=== PATIENT | female | born 1975 | race Caucasian/White ===

== ENCOUNTER → 2017-04-08 | Outpatient (CLI) | payer BC ==
--- NOTE | 2017-04-11 10:59 | CR ---
EXAM DATE: 04/08/17 PATIENT'S AGE: 41 Patient: VIOLETA ALVAREZ Facility: [facility] Site . Site : [id number] Study: XRay-Knee Left [id number]/15/2017 5:33:00 PM Ordering Physician: Susie Vann Final Report: INDICATION: pain in left knee TECHNIQUE: Knee radiograph 4 views left COMPARISON: None FINDINGS: Bones: Alignment is normal. No acute fractures or aggressive bone lesions identified. Joint spaces: Unremarkable. No knee effusion is seen on the lateral exam. Soft tissues: Unremarkable. No radiopaque foreign bodies are seen. IMPRESSION: 1. No acute osseous injuries are noted. Dictated by: Frank Rodriguez MD @ 04/10/2017 23:52:46 Signed by: Frank Rodriguez MD @04/10/2017 11:52:46 PM (Electronic Signature) Report Signed by Proxy. FRANSISCA
== END ==
LOC: MW.CHPM 14:49
PROVIDERS: ATTEND Anesthesiology
DX: Z51.81 Encounter for therapeutic drug level monitoring (principal); M25.562 Pain in left knee; Z79.891 Long term (current) use of opiate analgesic
CPT/HCPCS: 73564-26-LT; 73564-LT; 80305

== ENCOUNTER 2017-06-04 07:42 | Emergency (ER) | payer BC ==
--- NOTE | 2017-06-04 08:06 | EDM.PDOC ---
ED HPI GENERAL MEDICAL PROBLEM - General Chief Complaint: Neurological Problem Stated Complaint: RIGHT WENT NUMB Time Seen by Provider: 06/04/17 08:02 - History of Present Illness INITIAL COMMENTS - FREE TEXT/NARRATIVE: HISTORY AND PHYSICAL: History of present illness: Patient 41-year-old white female presents with a concern of intermittent right upper extremity pain seems to increase with activity patient equivocates regarding any cervical pain there's been no trauma and no other complaints Review of systems: As per history of present illness and below otherwise all systems reviewed and negative. Past medical history: As per history of present illness and as reviewed below otherwise noncontributory. Surgical history: As per history of present illness and as reviewed below otherwise noncontributory. Social history: No reported history of drug or alcohol abuse. Family history: As per history of present illness and as reviewed below otherwise noncontributory. Physical exam: HEENT: Atraumatic, normocephalic, pupils reactive, negative for conjunctival pallor or scleral icterus, mucous membranes moist, throat clear, neck supple, nontender, trachea midline. Lungs: Clear to auscultation, breath sounds equal bilaterally, chest nontender. Heart: S1S2, regular, negative for clicks, rubs, or JVD. Abdomen: Soft, nondistended, nontender. Negative for masses or hepatosplenomegaly. Negative for costovertebral tenderness. Pelvis: Stable nontender. Genitourinary: Deferred. Rectal: Deferred. Extremities: Atraumatic, negative for cords or calf pain. Neurovascular unremarkable. Neuro: Awake, alert, oriented. Cranial nerves II through XII unremarkable. Cerebellum unremarkable. Motor and sensory unremarkable throughout. Exam nonfocal. No cervical radicular findings on exam Diagnostics: X-ray cervical spine Therapeutics: None Impression: #1 intermittent right upper extremity pain etiology to be determined rule out cervical radiculopathy Definitive disposition and diagnosis as appropriate pending reevaluation and review of above. 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, Other OB/BYN History: ablation Musculoskeletal History: Reports: Arthritis, Back Pain, Chronic, Fracture Neurological History: Reports: CVA, Neuropathy, Peripheral Psychiatric History: Reports: Anxiety - Infectious Disease History Infectious Disease History: Reports: Chicken Pox - Past Surgical History GI Surgical History: Reports: Bariatric Procedure Female Surgical History: Reports: Section Social & Family History - Family History Family Medical History: Noncontributory Cardiac: Reports: Hypertension, [place] Neurological: Reports: CVA Endocrine/Metabolic: Reports: Diabetes, Type I Oncologic: Reports: Breast - Tobacco Use Smoking Status *Q: Never Smoker Second Hand Smoke Exposure: No - Caffeine Use Caffeine Use: Reports: Energy Drinks - Recreational Drug Use Recreational Drug Use: No ED ROS GENERAL - Review of Systems Review Of Systems: ROS reveals no pertinent complaints other than HPI. ED EXAM, GENERAL - Physical Exam Exam: See Below (See dictation) Course - Vital Signs Last Recorded V/S: Last Vital Signs Temp 36.6 C 06/04/17 07:50 Pulse 69 06/04/17 07:50 Resp 16 06/04/17 07:50 BP 145/99 H 06/04/17 07:50 Pulse Ox 98 06/04/17 07:50 Departure - Departure Time of Disposition: 09:06 Disposition: Home, Self-Care 01 Condition: Good Clinical Impression: Arm pain - Discharge Information Forms: ED Department Discharge Additional Instructions: The following information is given to patients seen in the emergency department who are being discharged to home. This information is to outline your options for follow-up care. We provide all patients seen in our emergency department with a follow-up referral. The need for follow-up, as well as the timing and circumstances, are variable depending upon the specifics of your emergency department visit. If you don't have a primary care physician on staff, we will provide you with a referral. We always advise you to contact your personal physician following an emergency department visit to inform them of the circumstance of the visit and for follow-up with them and/or the need for any referrals to a consulting specialist. The emergency department will also refer you to a specialist when appropriate. This referral assures that you have the opportunity for followup care with a specialist. All of these measure are taken in an effort to provide you with optimal care, which includes your followup. Under all circumstances we always encourage you to contact your private physician who remains a resource for coordinating your care. When calling for followup care, please make the office aware that this follow-up is from your recent emergency room visit. If for any reason you are refused follow-up, please contact the [facility] emergency department at and asked to speak to the emergency department charge nurse Follow-up primary medical doctor on today's return as needed as discussed[]
--- NOTE | 2017-06-04 08:43 | CR ---
EXAMINATION: Cervical spine HISTORY: Neck pain COMPARISON: None TECHNIQUE: AP and lateral views FINDINGS: There is mild reversal of the normal cervical lordosis likely positional. The vertebral libertad dy heights and disc spaces appear well-maintained. Bone mineralization is normal. No fracture or dis location. The prevertebral soft tissues are within normal limits. IMPRESSION: Grossly unremarkable cervical spine.
[2017-06-04 09:57] VITALS: BP 112/69
== END 2017-06-04 09:10 | disposition home or self-care (01) ==
LOC: MW.ED 07:42
DX: M79.601 Pain in right arm (principal); M19.90 Unspecified osteoarthritis, unspecified site; Z86.73 Personal history of transient ischemic attack (TIA), and cerebral infarction without residual deficits
CPT/HCPCS: 72040; 72040-26; 99282; 99284-25

== ENCOUNTER 2017-07-26 10:11 | Day surgery (SDC) | payer BC ==
[~2017-07-26 10:11] MED LIST: Dexamethasone 4 MG/ML 5 ML MDV ONE; Midazolam 1 MG/ML 2 ML SDV ONE; Ondansetron 4 MG/2 ML SDV ONE; Propofol 200 MG/20 ML SDV ONE; fentaNYL 100 MCG/2 ML SDV ONE
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
[2017-07-26] MEDS ORDERED: fentaNYL 100 MCG/2 ML SDV ONE (12:06)
[2017-07-26] MEDS ORDERED: Midazolam 1 MG/ML 2 ML SDV ONE (12:10)
[2017-07-26] MEDS ORDERED: fentaNYL 100 MCG/2 ML SDV IVPUSH PRN (12:26)
[2017-07-26 14:35] VITALS: BP 111/70
--- NOTE | 2017-08-01 14:47 | PCM.OPNOTE ---
- General Post-Op/Procedure Note Date of Surgery/Procedure: 07/26/17 Operative Procedure(s): excision of 2 bony blocks to the forehead Pre Op Diagnosis: 2 prominenet bone exostosis to the forehead. Post-Op Diagnosis: Same Anesthesia Technique: General LMA, Local Primary Surgeon: Sheri Mccann Market Manager: Colette Chamberlain Complications: None Condition: Good Free Text/Narrative:: [id number]
--- NOTE | 2017-08-02 11:55 | OR ---
SURGEON: EMMA PENA MD DATE OF PROCEDURE: 07/26/2017 PREOPERATIVE DIAGNOSIS: Two forehead bony exostoses. POSTOPERATIVE DIAGNOSIS: Two forehead bony exostoses. PROCEDURES: Excision of two bony blocks/bony exostoses to the forehead. 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 ANESTHESIA: LMA with local anesthesia. INDICATIONS: Ms. Lowery is a 41-year-old female with two bony exostoses to the forehead. Risks and benefits of excision were discussed, and she was in agreement to proceed. Risks were including, but not limited to, bleeding, infection, damage to underlying or overlying structures, possible need for future interventions and possible scarring. These have continued to grow and have started to cause some discomfort. PROCEDURE IN DETAIL: After informed consent was obtained and placed on the chart, the patient was brought to the operating theater and laid in the supine position. After adequate general LMA anesthesia was obtained, the area was prepped and draped, and a time-out was completed to confirm site. Attention was then paid to local anesthesia infiltration, and dissection was carried through skin using 15 blade and through subcutaneous tissues using Bovie electrocautery. Once dissected through the muscle layer, the bone periosteum was elevated using a [place] elevator and a rongeur was then used to debride the large bony exostosis centrally and a smaller bony exostosis laterally. This was excised and sent for pathology for lesion #1 being the smaller and lesion #2 being the larger. Once this was completed and a smooth contour was appreciated, meticulous hemostasis was obtained, and then the periosteal layer was closed, as was the muscle layer using Monocryl sutures and a running subcuticular with deep dermal sutures of Monocryl for the skin. This was dressed with Steri-Strips. The area had been copiously irrigated prior to closure. Of note, the bone underneath the very large exostosis was quite thin. FOLLOWUP INSTRUCTIONS: The patient will see us in clinic in approximately 10 days or sooner if any problems, questions, or concerns. She was given a prescription for pain control if needed and is on a pain contract. HEGGTWILMER / OSCARL /[id number]
== END 2017-07-26 13:50 | disposition home or self-care (01) ==
LOC: MW.SDS 10:11
PROVIDERS: ATTEND Plastic Surgery
PROC: 0NB00ZZ Excision of Skull, Open Approach (ICD-10-PCS; principal; 2017-07-26)
DX: D16.4 Benign neoplasm of bones of skull and face (principal); M25.2 Flail joint; G89.4 Chronic pain syndrome; F32.9 Major depressive disorder, single episode, unspecified; M19.90 Unspecified osteoarthritis, unspecified site; Z98.890 Other specified postprocedural states; Z79.899 Other long term (current) drug therapy; Z98.51 Tubal ligation status
CPT/HCPCS: 61500; 81025; J1100; J2250; J2405; J3010; 00190; 88304; 88311; J2704

== ENCOUNTER 2018-03-23 17:34 | Emergency (ER) | payer MEDICAID ==
[2018-03-23] MEDS ORDERED: Sodium Chloride 0.9% 2.5 ML Syringe FLUSH PRN (18:34)
[2018-03-23] MEDS ORDERED: Sodium Chloride 0.9% 1,000 ML IV ONE ×2 (18:34→20:22)
[2018-03-23] MEDS ORDERED: Sodium Chloride 0.9% 10 ML Syringe FLUSH PRN (18:34)
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
[2018-03-23 19:52] LABS: CHLORIDE,CL 107 mmol/L (98-107); SODIUM,NA 140 mmol/L (136-145)
[2018-03-23 21:14] VITALS: BP 128/58
== END 2018-03-23 21:14 | disposition home or self-care (01) ==
LOC: MW.ED 17:34
DX: E86.0 Dehydration (principal); Z79.899 Other long term (current) drug therapy
CPT/HCPCS: 36415; 80053; 82150; 83690; 85025; 96360; 99284; J7040

== ENCOUNTER 2018-06-16 20:45 | Observation (INO) | payer MEDICAID ==
[2018-06-16] MEDS ORDERED: Sodium Chloride 0.9% 1,000 ML IV ONE (20:54)
[2018-06-16] MEDS ORDERED: Ondansetron 4 MG/2 ML SDV IVPUSH ONE (20:54)
[2018-06-16] MEDS ORDERED: Ketorolac 30 MG/ML SDV IVPUSH ONE (20:54)
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
[2018-06-16 22:29] LABS: CHLORIDE,CL 108 mmol/L (98-107); SODIUM,NA 137 mmol/L (136-145)
[2018-06-16] MEDS ORDERED: Iopamidol 755 MG/ML 500 ML Multipack Bottle IVPUSH ONE (22:51)
[2018-06-16] MEDS ORDERED: Sodium Chloride 0.9% 1,000 ML IV SCH (23:45)
[2018-06-17] MEDS ORDERED: Sodium Chloride 0.9% 10 ML Syringe FLUSH PRN (00:04)
[2018-06-17] MEDS ORDERED: Sodium Chloride 0.9% 2.5 ML Syringe FLUSH PRN (00:04)
[2018-06-17] MEDS ORDERED: HYDROmorphone 2 MG/ML Syringe IVPUSH PRN (00:10)
[2018-06-17] MEDS ORDERED: Ondansetron 4 MG/2 ML SDV IVPUSH PRN (00:11)
[2018-06-17] MEDS: Lactated Ringers 1,000 ML IV SCH ×2 (01:14→06:15)
[2018-06-17] MEDS: Pantoprazole 40 MG Vial IVPUSH SCH ×2 (01:25→08:55)
[2018-06-17] MEDS ORDERED: ClonazePAM 0.5 MG Tab PO SCH (06:00)
[2018-06-17 06:34] LABS: CHLORIDE,CL 110 mmol/L (98-107); SODIUM,NA 141 mmol/L (136-145)
[2018-06-17] MEDS ORDERED: HYDROmorphone 1 MG/ML Syringe IVPUSH PRN (07:45)
--- NOTE | 2018-06-17 10:02 | CT ---
EXAM DATE: 06/17/18 PATIENT'S AGE: 42 Patient: VIOLETA ALVAREZ Facility: [place], [place] Site . Site : [id number] Study: CT Abdomen w/ cont [id number]/23/2018 10:59:27 PM Ordering Physician: Houston Casillas Final Report: INDICATION: Abdominal pain for 4 hours. TECHNIQUE: CT abdomen and pelvis acquired with i.v. 100 mL Isovue 370. Coronal and sagittal reformats were obtained. 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 Lower chest: Unremarkable. Liver: Unremarkable. Spleen: Unremarkable. Pancreas: Unremarkable. Gallbladder and bile ducts: Unremarkable. Kidneys: Unremarkable. No kidney or ureteral stones and no hydronephrosis seen. Adrenal glands: Unremarkable. GI tract: Appendix is well visualized and normal in the right lower quadrant. No bowel obstruction. Postsurgical changes from gastric bypass. Minimal mesenteric edema in the left abdomen adjacent to the anastomosis. No abnormal dilatation of adjacent small bowel loops. No pneumatosis. Vascular: Periportal edema, a nonspecific finding. Splenic veins, portal vein, and SMV are patent. Origins of celiac artery and SMA are patent. No abnormal twisting of the mesenteric vessels to indicate internal hernia. Lymph nodes: Unremarkable. Miscellaneous: Trace free fluid in the pelvis, within normal physiologic limits. Pelvic Organs: Fibroid uterus. Bones: Unremarkable for age. IMPRESSION: 1. No clear etiology identified for patient`s clinical symptoms of abdominal pain. Post surgical changes from gastric bypass. Faint degree of mesenteric edema and fat stranding in the left abdomen level of small bowel anastomosis, uncertain etiology and significance. No underlying bowel obstruction. 2. No imaging evidence of internal hernia. 3. Normal appendix. 4. Fibroid uterus. Dictated by Rodger Roman MD @ 06/16/2018 11:44:01 PM Please note that all CT scans at this facility use dose modulation, iterative reconstruction, and/or weight-based dosing when appropriate to reduce radiation dose to as low as reasonably achievable. Dictated by: Rodger Roman MD @ 06/16/2018 23:44:09 (Electronic Signature) Report Signed by Proxy. [facility]
[2018-06-17] MEDS ORDERED: ClonazePAM 0.5 MG Tab PO PRN (10:09)
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
--- NOTE | 2018-06-17 12:39 | US ---
EXAMINATION: Right upper quadrant ultrasound HISTORY: Rule out gallstones COMPARISON: CT dated 06/16/2018 TECHNIQUE: Grayscale and color Doppler imaging obtained. FINDINGS: The visualized pancreas appears normal. The liver is normal in contour and echotexture with out a focal hepatic mass. The gallbladder wall thickness is normal. No pericholecystic fluid or [place] wing gallstones. The common bile duct measures 4 mm. The right kidney measures 10.7 cm [id number] w ithout evidence of hydronephrosis. No abdominal ascites. IMPRESSION: Unremarkable right upper quadrant ultrasound.
[2018-06-17] MEDS ORDERED: Iron Polysaccharides Complex 150 MG Cap PO SCH (14:15)
[2018-06-17 16:38] VITALS: BP 126/59
== END 2018-06-17 18:30 | disposition home or self-care (01) ==
LOC: MW.ED 20:45 → MW.MS 06-17 00:01
PROVIDERS: ADMIT Internal Medicine; ATTEND Internal Medicine
DX: K85.90 Acute pancreatitis without necrosis or infection, unspecified (principal); J30.9 Allergic rhinitis, unspecified; F41.9 Anxiety disorder, unspecified; E66.9 Obesity, unspecified; D64.9 Anemia, unspecified; M19.071 Primary osteoarthritis, right ankle and foot; M19.072 Primary osteoarthritis, left ankle and foot; M17.12 Unilateral primary osteoarthritis, left knee; Z79.899 Other long term (current) drug therapy
CPT/HCPCS: 36415; 74177; 76705; 80053; 80061; 81001; 81025; 82607; 82728; 82746; 83550; 83690; 83735; 84484; 85025; 85045; 87040; 87086; 93005; 96361; 96374; 96375; 96376; 99285; A9270; C9113; G0378; G0480; J1885; J2405; J7040; J7120; Q9967; 99283